=== PATIENT | female | born 1955 | race Caucasian/White ===

== ENCOUNTER 2017-06-28 17:33 | Emergency (ER) | payer OTHER ==
[~2017-06-28] VITALS: Ht 165.1 cm; Wt 83.9 kg
[~2017-06-28 17:33] MED LIST: ACET325 PO; ALBU90OI INH; ASPI81CH PO; BAYER CHEWABLE81 MG PO; BLOOD PRESSURE MED; Bactrim Ds Tab1 EACH PO; CEPH500 PO; CHOL10002; CHOLESTEROL MED; CYCL10 PO; Cleocin HCl150 MG PO; Cleocin HCl300 MG PO; FENO160 PO; Fish Oil Conc1 EACH PO; GABA300 PO; GLYB2.5 PO; HIBICLENS120 ML; HYDACE10B PO; HYDACE5 PO; HYDR1TAB94 PO; INSDET100 SC; LEVEMIR FL100 UNIT/1 SC; LEVFLO500 PO; LEVSOD50 PO; LINE600 PO; LISI5 PO; METF500 PO; MUPI1NAS; Norco 5-325 Ta1 EACH PO; Norco 7.5-3251 EACH PO; ONDA4 PO; Percocet 10-321 EACH PO; Percocet 5-3251 EACH PO; Prilosec Otc20 MG PO; SULTRIDS PO; Voltaren100 GM TOP
[2017-06-28 17:53] LABS: BASOPHILS ABSOLUTE AUTO 0.04 K/mm3 (0.00-0.23); BASOPHILS PERCENT AUTO 1 % (0-2); EOSINOPHILS ABSOLUTE AUTO 0.33 K/mm3 (0.00-0.68); EOSINOPHILS PERCENT AUTO 5 % (0-6); Hematocrit 44.8 % (33.0-51.0); Hemoglobin 15.2 g/dL (11.5-16.0); IMMATURE GRAN ABSOLUTE AUTO 0.02 K/mm3 (0.00-0.10); IMMATURE GRAN PERCENT AUTO 0 % (0-1); LYMPHOCYTES ABSOLUTE AUTO 2.59 K/mm3 (0.84-5.20); LYMPHOCYTES PERCENT AUTO 40 % (21-46); MONOCYTES ABSOLUTE AUTO 0.43 K/mm3 (0.16-1.47); MONOCYTES PERCENT AUTO 7 % (4-13); Mean Corpuscular HGB 29.5 pg (26.0-34.0); Mean Corpuscular HGB Conc 33.9 g/dL (31.5-36.5); Mean Corpuscular Volume 87 fL (80-100); Mean Platelet Volume 11.1 fL (9.1-12.4); NEUTROPHILS PERCENT AUTO 48 % (41-73); Platelet Count 264 K/mm3 (150-400); RDW Coefficient Variation 12.8 % (11.7-14.2); RDW Standard Deviation 39.9 fL (35.1-46.3); Red Blood Cell Count 5.15 M/mm3 (3.80-5.20); White Blood Cell Count 6.51 K/mm3 (4.00-11.30)
[2017-06-28 18:08] LABS: International Normalized Ratio 1.01; Prothrombin Time Results 10.5 Sec (9.7-11.5)
[2017-06-28 18:13] LABS: Alanine Aminotransfer (ALT/SGP 78 U/L (12-78); Albumin, Blood 4.4 g/dL (3.4-5.0); Albumin/Globulin Ratio 1.1 (0.8-1.8); Alk Phos 68 U/L (50-136); Anion Gap 12 mmol/L (6-16); Aspartate Aminotrans (AST/SGOT 87 U/L (12-37); Bilirubin, Total 0.4 mg/dL (0.1-1.0); Blood Urea Nitrogen 19 mg/dL (8-24); CO2, Blood 20 mmol/L (21-32); Calcium, Blood 9.6 mg/dL (8.5-10.1); Chloride, Blood 102 mmol/L (98-108); Creatinine, Blood 0.76 mg/dL (0.40-1.00); Glomerular Filtration Rate >60 (60-); Glucose, Blood 289 mg/dL (70-99); Potassium, Blood 4.3 mmol/L (3.5-5.5); Sodium, Blood 134 mmol/L (136-145); Total Protein, Blood 8.4 g/dL (6.4-8.2); Troponin I <0.015 ng/mL (0.000-0.040)
[2017-06-28 18:45] LABS: Magnesium, Blood 1.6 mg/dL (1.6-2.4)
[2017-06-28 19:12] LABS: Influenza A Negative (NEGATIVE); Influenza B Negative (NEGATIVE)
[2017-06-28] MEDS ORDERED: Zithromax250 MG PO (19:56)
[2017-06-28] MEDS ORDERED: Prednisone20 MG PO (19:56)
== END 2017-06-28 20:18 | disposition home or self-care (01) ==
LOC: ER 17:33
PROVIDERS: Emergency Medicine
DX: J44.1 Chronic obstructive pulmonary disease with (acute) exacerbation (principal); R00.0 Tachycardia, unspecified; Z88.5 Allergy status to narcotic agent; Z88.8 Allergy status to other drugs, medicaments and biological substances; Z79.899 Other long term (current) drug therapy; Z79.84 Long term (current) use of oral hypoglycemic drugs; Z79.82 Long term (current) use of aspirin; Z79.4 Long term (current) use of insulin; E03.9 Hypothyroidism, unspecified; E11.9 Type 2 diabetes mellitus without complications; F17.290 Nicotine dependence, other tobacco product, uncomplicated; Z87.01 Personal history of pneumonia (recurrent)
CPT/HCPCS: 36415; 71046; 80053; 83735; 83880; 84484; 85025; 85379; 85610; 85730; 87804; 93005; 93010; 94640; 96361; 96374; 99284; J2930; J7030

== ENCOUNTER → 2017-07-07 | Outpatient (CLI) | payer OTHER ==
[~2017-07-07] MED LIST changes: +BENADRYL25 MG PO; +EPIPEN 2-P0.3 MG/0.3 IM; +Prednisone20 MG PO; +Prednisone50 MG PO; +Zithromax250 MG PO
[2017-07-07 13:09] LABS: BASOPHILS ABSOLUTE AUTO 0.07 K/mm3 (0.00-0.23); BASOPHILS PERCENT AUTO 1 % (0-2); EOSINOPHILS PERCENT AUTO 6 % (0-6); Hematocrit 43.5 % (33.0-51.0); Hemoglobin 15.2 g/dL (11.5-16.0); IMMATURE GRAN ABSOLUTE AUTO 0.03 K/mm3 (0.00-0.10); IMMATURE GRAN PERCENT AUTO 0 % (0-1); LYMPHOCYTES ABSOLUTE AUTO 2.34 K/mm3 (0.84-5.20); LYMPHOCYTES PERCENT AUTO 32 % (21-46); MONOCYTES ABSOLUTE AUTO 0.51 K/mm3 (0.16-1.47); MONOCYTES PERCENT AUTO 7 % (4-13); Mean Corpuscular HGB 30.3 pg (26.0-34.0); Mean Corpuscular HGB Conc 34.9 g/dL (31.5-36.5); Mean Corpuscular Volume 87 fL (80-100); Mean Platelet Volume 11.3 fL (9.1-12.4); NEUTROPHILS ABSOLUTE AUTO 3.95 K/mm3 (1.96-9.15); NEUTROPHILS PERCENT AUTO 54 % (41-73); Platelet Count 284 K/mm3 (150-400); RDW Standard Deviation 40.3 fL (35.1-46.3); Red Blood Cell Count 5.02 M/mm3 (3.80-5.20)
[2017-07-07 13:22] LABS: Anion Gap 12 mmol/L (6-16); Blood Urea Nitrogen 22 mg/dL (8-24); Bun/Creatinine Ratio 20.4 (12.0-20.0); CO2, Blood 22 mmol/L (21-32); Calcium, Blood 9.5 mg/dL (8.5-10.1); Chloride, Blood 100 mmol/L (98-108); Creatinine, Blood 1.08 mg/dL (0.40-1.00); Glomerular Filtration Rate 51 (60-); Glucose, Blood 277 mg/dL (70-99); Potassium, Blood 4.4 mmol/L (3.5-5.5); Sodium, Blood 134 mmol/L (136-145)
[2017-07-07 13:25] LABS: Troponin I <0.017 ng/mL (0.000-0.040)
== END | disposition home or self-care (01) ==
LOC: LAB SHORT 13:04
PROVIDERS: Physician Assistant Surgical
DX: R42 Dizziness and giddiness (principal)
CPT/HCPCS: 80048; 84484; 85025; 85379

== ENCOUNTER 2017-11-15 16:20 | Emergency (ER) | payer OTHER ==
[~2017-11-15] VITALS: Ht 167.6 cm; Wt 86.2 kg
[~2017-11-15 16:20] MED LIST changes: -BENADRYL25 MG PO; -EPIPEN 2-P0.3 MG/0.3 IM; -Prednisone50 MG PO
[2017-11-15] MEDS ORDERED: Prednisone50 MG PO (17:32)
[2017-11-15] MEDS ORDERED: EPIPEN 2-P0.3 MG/0.3 IM (17:32)
[2017-11-15] MEDS ORDERED: BENADRYL25 MG PO (17:32)
[2017-11-15 18:00] LABS: Calcium, Ionized (POC) 1.12 mmol/L (1.10-1.46); Chloride (POC) 102 mmol/L (98-108); Creatinine (POC) 0.6 mg/dL (0.6-1.0); Glucose (ISTAT POC) 289 mg/dL (70-99); Hemoglobin (POC) 15.6 g/dL (12.0-16.0); Potassium (POC) 4.5 mmol/L (3.5-5.5); Sodium (POC) 138 mmol/L (135-148); Total CO2 (POC) 22 mmol/L (21-32)
== END 2017-11-15 18:35 | disposition home or self-care (01) ==
LOC: ER 16:20
PROVIDERS: Emergency Medicine
DX: T78.40XA Allergy, unspecified, initial encounter (principal); I47.1 Supraventricular tachycardia; Z88.5 Allergy status to narcotic agent; Z88.8 Allergy status to other drugs, medicaments and biological substances; Z79.899 Other long term (current) drug therapy; Z79.4 Long term (current) use of insulin; Z79.82 Long term (current) use of aspirin; Z79.84 Long term (current) use of oral hypoglycemic drugs; Z79.52 Long term (current) use of systemic steroids; J44.9 Chronic obstructive pulmonary disease, unspecified; E11.9 Type 2 diabetes mellitus without complications; E78.00 Pure hypercholesterolemia, unspecified; F17.290 Nicotine dependence, other tobacco product, uncomplicated
CPT/HCPCS: 71046; 80047; 85014; 93005; 93010; 96360; 99283; J7030

== ENCOUNTER → 2017-11-15 | Outpatient (CLI) | payer OTHER ==
[2017-11-15 15:35] LABS: BASOPHILS ABSOLUTE AUTO 0.08 K/mm3 (0.00-0.23); BASOPHILS PERCENT AUTO 0 % (0-2); EOSINOPHILS ABSOLUTE AUTO 0.15 K/mm3 (0.00-0.68); EOSINOPHILS PERCENT AUTO 1 % (0-6); Hemoglobin 16.8 g/dL (11.5-16.0); IMMATURE GRAN ABSOLUTE AUTO 0.07 K/mm3 (0.00-0.10); IMMATURE GRAN PERCENT AUTO 0 % (0-1); LYMPHOCYTES ABSOLUTE AUTO 3.97 K/mm3 (0.84-5.20); LYMPHOCYTES PERCENT AUTO 22 % (21-46); MONOCYTES ABSOLUTE AUTO 0.83 K/mm3 (0.16-1.47); MONOCYTES PERCENT AUTO 5 % (4-13); Mean Corpuscular Volume 86 fL (80-100); Mean Platelet Volume 11.6 fL (9.1-12.4); NEUTROPHILS ABSOLUTE AUTO 13.22 K/mm3 (1.96-9.15); NEUTROPHILS PERCENT AUTO 72 % (41-73); Platelet Count 381 K/mm3 (150-400); RDW Coefficient Variation 12.6 % (11.7-14.2); RDW Standard Deviation 38.9 fL (35.1-46.3); White Blood Cell Count 18.32 K/mm3 (4.00-11.30)
[2017-11-15 15:57] LABS: Alanine Aminotransfer (ALT/SGP 87 U/L (12-78); Albumin, Blood 4.2 g/dL (3.4-5.0); Albumin/Globulin Ratio 1.2 (0.8-1.8); Alk Phos 57 U/L (40-126); Anion Gap 17 mmol/L (6-16); Aspartate Aminotrans (AST/SGOT 88 U/L (12-37); Bilirubin, Total 0.4 mg/dL (0.1-1.0); Blood Urea Nitrogen 18 mg/dL (8-24); Bun/Creatinine Ratio 13.8 (12.0-20.0); CO2, Blood 20 mmol/L (21-32); Calcium, Blood 9.2 mg/dL (8.5-10.1); Chloride, Blood 99 mmol/L (98-108); Globulin, Blood 3.6 g/dL (2.2-4.0); Glomerular Filtration Rate 41 (60-); Glucose, Blood 317 mg/dL (70-99); Potassium, Blood 4.7 mmol/L (3.5-5.5); Sodium, Blood 136 mmol/L (136-145); Total Protein, Blood 7.8 g/dL (6.4-8.2); Troponin I <0.017 ng/mL (0.000-0.040)
== END | disposition home or self-care (01) ==
LOC: LAB SHORT 15:32 → LAB EV 15:32
PROVIDERS: Physician Assistant Medical
DX: R00.0 Tachycardia, unspecified (principal)
CPT/HCPCS: 80053; 84443; 84484; 85025

== ENCOUNTER → 2018-01-07 | Outpatient (CLI) | payer OTHER ==
[~2018-01-07] MED LIST changes: +BENADRYL25 MG PO; +EPIPEN 2-P0.3 MG/0.3 IM; +Prednisone50 MG PO
== END | disposition home or self-care (01) ==
LOC: LAB SHORT 12:49 → LAB 12:49
DX: N18.3 Chronic kidney disease, stage 3 (moderate) (principal); N39.0 Urinary tract infection, site not specified
CPT/HCPCS: 87086

== ENCOUNTER → 2018-09-11 | Outpatient (CLI) | payer OTHER | END | disposition home or self-care (01) | LOC: LAB 17:41 → LAB SHORT 17:41 | DX: Z22.322 Carrier or suspected carrier of Methicillin resistant Staphylococcus aureus (principal) | CPT/HCPCS: 87081 ==

== ENCOUNTER → 2021-07-09 | Outpatient (CLI) | payer OTHER ==
[2021-07-09 20:09] LABS: Adenovirus F 40/41 Not Detected (NOT DETECT); Astrovirus Not Detected (NOT DETECT); Campylobacter Sp Not Detected (NOT DETECT); Cryptosporidium Not Detected (NOT DETECT); Cyclospora Cayetanensis Not Detected (NOT DETECT); E. Coli O157 Not Detected (NOT DETECT); Entamoeba Histolytica Not Detected (NOT DETECT); Enteroaggregative E. coli-EAEC Not Detected (NOT DETECT); Enteropathogenic E. coli-EPEC Not Detected (NOT DETECT); Enterotoxigenic E. coli-ETEC Not Detected (NOT DETECT); Giardia Lamblia Not Detected (NOT DETECT); Norovirus GI/GII Not Detected (NOT DETECT); Plesiomonas Shigelloides Not Detected (NOT DETECT); Rotavirus A Not Detected (NOT DETECT); Salmonella Sp Not Detected (NOT DETECT); Sapovirus Not Detected (NOT DETECT); Shiga Toxin-prod E. coli-STEC Not Detected (NOT DETECT); Shigella/Enteroin E. coli-EIEC Not Detected (NOT DETECT); Vibrio Cholerae Not Detected (NOT DETECT); Vibrio Sp Not Detected (NOT DETECT); Yersinia Enterocolitica Not Detected (NOT DETECT)
== END ==
LOC: LAB SHORT 16:24
PROVIDERS: Family Medicine
DX: R19.7 Diarrhea, unspecified (principal)
CPT/HCPCS: 0097U

== ENCOUNTER 2021-10-18 11:27 | Day surgery (SDC) | payer OTHER ==
[~2021-10-18] VITALS: Ht 167.6 cm; Wt 82.9 kg
== END 2021-10-18 13:30 | disposition home or self-care (01) ==
LOC: ORSCSDS 11:27
PROVIDERS: Internal Medicine Gastroenterology
PROC: 0DBE8ZX Excision of Large Intestine, Via Natural or Artificial Opening Endoscopic, Diagnostic (ICD-10-PCS; principal; 2021-10-18 12:45)
DX: R19.4 Change in bowel habit (principal); K21.9 Gastro-esophageal reflux disease without esophagitis; K22.2 Esophageal obstruction; K57.30 Diverticulosis of large intestine without perforation or abscess without bleeding; E11.9 Type 2 diabetes mellitus without complications; Z87.891 Personal history of nicotine dependence; E66.9 Obesity, unspecified; Z68.30 Body mass index [BMI] 30.0-30.9, adult; Z79.84 Long term (current) use of oral hypoglycemic drugs; Z79.899 Other long term (current) drug therapy
CPT/HCPCS: 82947; 88305; J2704; J7120

== ENCOUNTER → 2023-03-06 | Outpatient (CLI) | payer OTHER ==
[2023-03-06 16:50] LABS: BASOPHILS ABSOLUTE AUTO 0.06 K/mm3 (0.00-0.23); BASOPHILS PERCENT AUTO 1 % (0-2); EOSINOPHILS ABSOLUTE AUTO 0.16 K/mm3 (0.00-0.68); EOSINOPHILS PERCENT AUTO 1 % (0-6); Hematocrit 35.4 % (33.0-51.0); Hemoglobin 11.9 g/dL (11.5-16.0); IMMATURE GRAN ABSOLUTE AUTO 0.07 K/mm3 (0.00-0.10); IMMATURE GRAN PERCENT AUTO 1 % (0-1); LYMPHOCYTES ABSOLUTE AUTO 2.05 K/mm3 (0.84-5.20); LYMPHOCYTES PERCENT AUTO 16 % (21-46); MONOCYTES ABSOLUTE AUTO 0.87 K/mm3 (0.16-1.47); MONOCYTES PERCENT AUTO 7 % (4-13); Mean Corpuscular HGB 27.7 pg (26.0-34.0); Mean Corpuscular HGB Conc 33.6 g/dL (31.5-36.5); Mean Corpuscular Volume 83 fL (80-100); Mean Platelet Volume 10.4 fL (9.1-12.4); NEUTROPHILS ABSOLUTE AUTO 9.93 K/mm3 (1.96-9.15); NEUTROPHILS PERCENT AUTO 76 % (41-73); Platelet Count 464 K/mm3 (150-400); RDW Coefficient Variation 12.9 % (11.7-14.2); RDW Standard Deviation 38.5 fL (35.1-46.3); Red Blood Cell Count 4.29 M/mm3 (3.80-5.20); White Blood Cell Count 13.14 K/mm3 (4.00-11.30)
[2023-03-06 16:54] LABS: Bun/Creatinine Ratio 11.8 (12.0-20.0); Calcium, Blood 9.7 mg/dL (8.5-10.1); Creatinine, Blood 1.02 mg/dL (0.40-1.00); Potassium, Blood 4.3 mmol/L (3.5-5.5)
== END | disposition home or self-care (01) ==
LOC: LAB 16:44 → LAB SHORT 16:44
PROVIDERS: Family Medicine
DX: L97.509 Non-pressure chronic ulcer of other part of unspecified foot with unspecified severity (principal)
CPT/HCPCS: 80048; 85025

== ENCOUNTER 2023-03-10 10:18 | Inpatient (IN) | payer OTHER ==
[~2023-03-10] VITALS: Ht 167.6 cm; Wt 83.5 kg
[2023-03-10 11:07] LABS: BASOPHILS ABSOLUTE AUTO 0.05 K/mm3 (0.00-0.23); BASOPHILS PERCENT AUTO 1 % (0-2); EOSINOPHILS ABSOLUTE AUTO 0.31 K/mm3 (0.00-0.68); EOSINOPHILS PERCENT AUTO 4 % (0-6); Hematocrit 33.8 % (33.0-51.0); Hemoglobin 11.1 g/dL (11.5-16.0); IMMATURE GRAN ABSOLUTE AUTO 0.03 K/mm3 (0.00-0.10); IMMATURE GRAN PERCENT AUTO 0 % (0-1); LYMPHOCYTES ABSOLUTE AUTO 1.86 K/mm3 (0.84-5.20); LYMPHOCYTES PERCENT AUTO 22 % (21-46); MONOCYTES ABSOLUTE AUTO 0.81 K/mm3 (0.16-1.47); MONOCYTES PERCENT AUTO 10 % (4-13); Mean Corpuscular HGB 27.4 pg (26.0-34.0); Mean Corpuscular HGB Conc 32.8 g/dL (31.5-36.5); Mean Corpuscular Volume 84 fL (80-100); Mean Platelet Volume 10.3 fL (9.1-12.4); NEUTROPHILS ABSOLUTE AUTO 5.28 K/mm3 (1.96-9.15); NEUTROPHILS PERCENT AUTO 63 % (41-73); Platelet Count 569 K/mm3 (150-400); RDW Standard Deviation 39.7 fL (35.1-46.3); Red Blood Cell Count 4.05 M/mm3 (3.80-5.20); White Blood Cell Count 8.34 K/mm3 (4.00-11.30)
[2023-03-10 11:12] LABS: Albumin, Blood 2.8 g/dL (3.4-5.0); Albumin/Globulin Ratio 0.5 (0.8-1.8); Bilirubin, Total 0.2 mg/dL (0.1-1.0); Calcium, Blood 9.5 mg/dL (8.5-10.1); Creatinine, Blood 0.86 mg/dL (0.40-1.00); Globulin, Blood 5.2 g/dL (2.2-4.0); Potassium, Blood 4.4 mmol/L (3.5-5.5)
[2023-03-10 14:39] VITALS: BP 137/93
--- NOTE | 2023-03-10 15:12 | NUR ---
PATIENT ARRIVED FROM ER TODAY AT 1440. PATIENT IS A&OX4. VS ARE WNL AND IS ON RA. PATIENT DENIES PAIN AT THIS TIME. HER LEFT TOE HAS GAUZE AND KERLEX THAT IS INTACT. PATIENT REPORTS HAVING NO NUMBNESS OR TINGLING IN ALL EXTREMITIES. SHE IS UNABLE TO MOVE HER LEFT BIG TOE THAT MUCH BUT SHE IS ABLE TO MOVE ALL OTHER FINGERS AND TOES WHEN ASKED. SHE IS TOLERATING PO INTAKE AND IS VOIDING/HAVING BMS. SHE IS CURRENTLY LAYING IN BED WITH CALL LIGHT IN REACH. THE PLAN IS FOR HER TO BE NPO AT MIDNIGHT TONIGHT AND WILL HAVE SURGERY WITH DR. WATT IN THE MORNING TO AMPUTATE THE LEFT BIG TOE.
[2023-03-10 21:17] VITALS: BP 114/53
[2023-03-11] VITALS (13 sets, daily range): BP systolic 111–147; BP diastolic 57–78
--- NOTE | 2023-03-11 04:46 | NUR ---
SHIFT SUMMARY NO ACUTE CHANGES TO REPORT OVERNIGHT, PT HAS RESTED T/O THE SHIFT. MEDICATED X1 FOR PAIN. DRESSING TO R GREAT TOE CHANGED X1 THIS SHIFT, LOTS OF SEROSANGUINEOUS EXUDATE WHICH SATURATED EXUDRY. PT REPORTS NEUROPATHY AT BASELINE IN FEET, BUT REPORTS INCREASED N/T WITH INFECTION OF TOE. PT HAS SENSATION WHEN FOOT IS TOUCHED. PT HAS BEEN NPO SINCE MIDNIGHT FOR PROCEDURE, IV ANTIBITOICS INFUSED. BED IN LOWEST POSITION, CALL LIGHT WITHIN REACH.
[2023-03-11 05:18] LABS: Hematocrit 31.4 % (33.0-51.0); Mean Corpuscular HGB 27.1 pg (26.0-34.0); Mean Corpuscular HGB Conc 31.8 g/dL (31.5-36.5); Mean Corpuscular Volume 85 fL (80-100); Mean Platelet Volume 10.1 fL (9.1-12.4); Platelet Count 500 K/mm3 (150-400); RDW Coefficient Variation 13.2 % (11.7-14.2); RDW Standard Deviation 41.1 fL (35.1-46.3); Red Blood Cell Count 3.69 M/mm3 (3.80-5.20); White Blood Cell Count 6.85 K/mm3 (4.00-11.30)
[2023-03-11 05:54] LABS: Bun/Creatinine Ratio 12.9 (12.0-20.0); Calcium, Blood 9.8 mg/dL (8.5-10.1); Creatinine, Blood 0.78 mg/dL (0.40-1.00); Magnesium, Blood 1.4 mg/dL (1.6-2.4); Potassium, Blood 4.1 mmol/L (3.5-5.5); Thyroid Stimulating Hormone 0.976 uIU/mL (0.360-4.800)
--- NOTE | 2023-03-11 12:29 | NUR ---
PT WENT TO PREOP/O.R.
--- NOTE | 2023-03-11 14:00 | NUR ---
PT BACK FROM O.R., A&OX4, DENIES PAIN, DENIES N&V/HALEIGH H20, AT BEDSIDE.
--- NOTE | 2023-03-11 16:44 | NUR ---
SHIFT SUMMARY PT A&OX4, VSS/RA, HALEIGH PO, VOIDING, AMB SBA W/POSTOP SHOE ON, REPOSITIONS SELF WELL, DENIES PAIN/NEED FOR PAIN MED AT THIS TIME, IV LAC SL/ABX PER EMAR. S/P L GREAT TOE AMPUTATION, DRESSING CDI, ELEVATED. WILL REPORT TO ONCOMING NOC RN.
[2023-03-11] MEDS ORDERED: Amaryl1 MG PO (18:17)
[2023-03-11] MEDS ORDERED: PREGABALIN25 MG PO (18:21)
[2023-03-11] MEDS ORDERED: BASAGLAR K100 UNIT/1 SC (18:22)
[2023-03-11] MEDS ORDERED: Cymbalta20 MG PO (18:22)
[2023-03-11] MEDS ORDERED: OMEP20ER PO (18:24)
[2023-03-11] MEDS ORDERED: NEBI10 PO (18:24)
[2023-03-11] MEDS ORDERED: PRAVASTATIN SOD10 MG PO (18:25)
--- NOTE | 2023-03-11 21:24 | NUR ---
BG 359 ESEQUIEL MENEZES NP NOTIFIED. NOTIFIED HIM THAT PT RECEIVED 50 UNITS OF LANTUS HS. NO ADDITIONAL ORDERS GIVEN AT THIS TIME.
[2023-03-12 00:12] VITALS: BP 122/73
[2023-03-12 01:04] LABS: Hematocrit 32.4 % (33.0-51.0); Hemoglobin 10.6 g/dL (11.5-16.0); Mean Corpuscular HGB 27.5 pg (26.0-34.0); Mean Corpuscular HGB Conc 32.7 g/dL (31.5-36.5); Mean Corpuscular Volume 84 fL (80-100); Mean Platelet Volume 9.9 fL (9.1-12.4); Platelet Count 530 K/mm3 (150-400); RDW Coefficient Variation 13.2 % (11.7-14.2); RDW Standard Deviation 39.8 fL (35.1-46.3); Red Blood Cell Count 3.85 M/mm3 (3.80-5.20)
[2023-03-12 01:23] LABS: Vancomycin, Trough 14.4 ug/mL (5.0-10.0)
[2023-03-12 01:25] LABS: Albumin, Blood 2.8 g/dL (3.4-5.0); Anion Gap 9 mmol/L (6-16); Blood Urea Nitrogen 18 mg/dL (8-24); Bun/Creatinine Ratio 21.5 (12.0-20.0); CO2, Blood 24 mmol/L (21-32); Calcium, Blood 9.6 mg/dL (8.5-10.1); Chloride, Blood 104 mmol/L (98-108); Creatinine, Blood 0.84 mg/dL (0.40-1.00); Glomerular Filtration Rate 75 (60-); Glucose, Blood 330 mg/dL (70-99); Magnesium, Blood 1.6 mg/dL (1.6-2.4); Phosphorus, Blood 3.5 mg/dL (2.5-4.9); Potassium, Blood 4.4 mmol/L (3.5-5.5); Sodium, Blood 137 mmol/L (136-145)
[2023-03-12 03:40] VITALS: BP 142/60
--- NOTE | 2023-03-12 03:54 | NUR ---
SHIFT SUMMARY NO ACUTE CHANGES TO REPORT OVERNIGHT, PT POST OP DAY 0 R GREAT TOE AMPUATION, PT HAS DENIED PAIN MOST OF THE NIGHT, AND JUST STARTED TO REPORT PAIN THIS AM. WILL MEDICATE PER MICHAEL NICOLE. DRESSING IS INTACT TO FOOT. PT WEARIMG SPECIAL SHOE TO AMBULATE. VITALS ARE STABLE. IV ANTIBITOICS CONTINUED. BED IN LOWEST POSITION, CALL LIGHT WITHIN REACH.
[2023-03-12 07:15] VITALS: BP 124/69
[2023-03-12] MEDS ORDERED: AMOX875 PO (12:31)
[2023-03-12] MEDS ORDERED: SENN187 PO (12:32)
[2023-03-12] MEDS ORDERED: HYDR1TAB94 PO (12:35)
--- NOTE | 2023-03-12 13:26 | NUR ---
DISCHARGE SUMMARY PT A&OX4, VSS/RA, HALEIGH PO, VOIDING, AMB W/POSTOP SHOE, PAIN MANAGED, IV DC'D. DC INS PROVIDED. PT REP UNDERSTANDING THOSE INSTRUCTIONS INCLUDING KEEPING DRESSING CDI, ELEVATE AT REST, WEAR POSTOP SHOE WITH AMB, FU WITH SURGEON THIS WEEK/CALL ON MONDAY TO SCHEDULE. LEFT FLOOR VIA WC WITH FIRM ADMINISTRATOR, TO GO HOME WITH , WITH ALL PERSONAL POSSESSIONS INCLUDING DC PACKET AND 1 NARC SCRIPT; SCRIPTS FAXED TO [facility].
--- NOTE | 2023-03-14 15:39 | NUR ---
03/14/23 1539 Erna Hunter VERIFICATIONS: EDIT CHART.
== END 2023-03-12 13:15 | disposition home or self-care (01) | DRG 617 ==
LOC: ER 10:18 → SURS 12:39
PROVIDERS: Internal Medicine; Physician Assistant; Podiatrist; ADMIT Internal Medicine
PROC: 0Y6Q0Z0 Detachment at Left 1st Toe, Complete, Open Approach (ICD-10-PCS; principal; 2023-03-11 10:30)
DX: E11.69 Type 2 diabetes mellitus with other specified complication (principal); M86.172 Other acute osteomyelitis, left ankle and foot; E11.628 Type 2 diabetes mellitus with other skin complications; L03.032 Cellulitis of left toe; E11.621 Type 2 diabetes mellitus with foot ulcer; F17.290 Nicotine dependence, other tobacco product, uncomplicated; K21.9 Gastro-esophageal reflux disease without esophagitis; J44.9 Chronic obstructive pulmonary disease, unspecified; L97.524 Non-pressure chronic ulcer of other part of left foot with necrosis of bone; E03.9 Hypothyroidism, unspecified; E11.40 Type 2 diabetes mellitus with diabetic neuropathy, unspecified; Z90.710 Acquired absence of both cervix and uterus; Z79.4 Long term (current) use of insulin; Z79.891 Long term (current) use of opiate analgesic; Z79.890 Hormone replacement therapy; Z79.2 Long term (current) use of antibiotics; Z79.899 Other long term (current) drug therapy; Z88.5 Allergy status to narcotic agent; Z88.8 Allergy status to other drugs, medicaments and biological substances; Z86.19 Personal history of other infectious and parasitic diseases; Z79.82 Long term (current) use of aspirin
CPT/HCPCS: 36415; 80048; 80053; 80069; 80202; 82947; 83605; 83735; 84443; 85025; 85027; 96365; 96375; 99284-25; A9270; J0692; J1100; J1815; J1885; J2405; J2704; J3010; J3370; J3475; J7030; J7120

== ENCOUNTER → 2024-02-23 | Outpatient (CLI) | payer OTHER ==
[~2024-02-23] MED LIST changes: +AMOX875 PO; +Amaryl1 MG PO; +BASAGLAR K100 UNIT/1 SC; +Cymbalta20 MG PO; +NEBI10 PO; +OMEP20ER PO; +PRAVASTATIN SOD10 MG PO; +PREGABALIN25 MG PO; +SENN187 PO
== END ==
LOC: LAB 17:05 → LAB SHORT 17:05
DX: R30.0 Dysuria (principal)
CPT/HCPCS: 87077; 87086; 87147; 87186

== ENCOUNTER → 2024-02-26 | Outpatient (CLI) | payer OTHER ==
[2024-02-27 16:40] LABS: Adenovirus F 40/41 Not Detected (NOT DETECT); Astrovirus Not Detected (NOT DETECT); Campylobacter Sp Not Detected (NOT DETECT); Cryptosporidium Not Detected (NOT DETECT); Cyclospora Cayetanensis Not Detected (NOT DETECT); E. Coli O157 Not Detected (NOT DETECT); Entamoeba Histolytica Not Detected (NOT DETECT); Enteroaggregative E. coli-EAEC Not Detected (NOT DETECT); Enteropathogenic E. coli-EPEC Not Detected (NOT DETECT); Enterotoxigenic E. coli-ETEC Not Detected (NOT DETECT); Giardia Lamblia Not Detected (NOT DETECT); Norovirus GI/GII Not Detected (NOT DETECT); Plesiomonas Shigelloides Not Detected (NOT DETECT); Rotavirus A Not Detected (NOT DETECT); Salmonella Sp Not Detected (NOT DETECT); Sapovirus Not Detected (NOT DETECT); Shiga Toxin-prod E. coli-STEC Not Detected (NOT DETECT); Shigella/Enteroin E. coli-EIEC Not Detected (NOT DETECT); Vibrio Cholerae Not Detected (NOT DETECT); Vibrio Sp Not Detected (NOT DETECT); Yersinia Enterocolitica Not Detected (NOT DETECT)
[2024-02-28 11:47] LABS: Stool Occult Bld Immuno 1 Positive (NEGATIVE)
[2024-02-29 13:28] LABS: CALPROTECTIN,FECAL 118 ug/g (<=49)
== END | disposition home or self-care (01) ==
LOC: LAB SHORT 14:30 → LAB 14:30
PROVIDERS: Nurse Practitioner Family
DX: K92.1 Melena (principal); R19.4 Change in bowel habit
CPT/HCPCS: 82274; 83993; 87507

== ENCOUNTER → 2024-03-07 | Outpatient (CLI) | payer OTHER | LOC: LAB SHORT 19:06 → LAB 19:06 | DX: R10.84 Generalized abdominal pain (principal) | CPT/HCPCS: 87086 ==

== ENCOUNTER → 2024-04-03 | Outpatient (CLI) | payer OTHER | LOC: LAB SHORT 16:25 → LAB 16:25 | DX: N39.0 Urinary tract infection, site not specified (principal) | CPT/HCPCS: 87086 ==

== ENCOUNTER → 2024-05-01 | Outpatient (CLI) | payer OTHER ==
[~2024-05-01] MED LIST changes: +CLON.5 PO
[2024-05-01 11:02] LABS: Source, Urine Clean Catch
[2024-05-01 11:03] LABS: Source, Urine Clean Catch
[2024-05-01 13:24] LABS: Appearance, Urine Clear (Clear); Bilirubin, Urine Neg (Neg); Blood, Urine Neg (Neg); Color, Urine Yellow (P-Yellow); Glucose Qualitative, Urine Neg (Neg); Ketones, Urine Neg (Neg); Leukocyte Esterase, Urine 3+ (Neg); Nitrite, Urine Neg (Neg); Protein, Urine 1+ (Neg); Urobilinogen, Urine NORM (Normal)
[2024-05-01 13:55] LABS: Bacteria Many /hpf; Hyaline Casts 0-2 /lpf (0-2); Squamous Epithelial Cells Many /hpf (Few); Transitional Epithelial Cells Few /hpf (0-Rare); White Blood Cells, Urine 25-50 /hpf (0-5)
[2024-05-01 14:03] LABS: Albumin, Blood 3.8 g/dL (3.4-5.0); Anion Gap 13 mmol/L (3-11); Blood Urea Nitrogen 17 mg/dL (8-24); Bun/Creatinine Ratio 24.9 (12.0-20.0); CO2, Blood 23 mmol/L (21-32); Calcium, Blood 9.5 mg/dL (8.5-10.1); Chloride, Blood 109 mmol/L (98-108); Creatinine, Blood 0.68 mg/dL (0.40-1.00); Glomerular Filtration Rate 94 (60-); Glucose, Blood 164 mg/dL (70-99); Potassium, Blood 4.1 mmol/L (3.5-5.5); Sodium, Blood 141 mmol/L (136-145)
== END | disposition home or self-care (01) ==
LOC: LAB 10:55 → LAB SHORT 10:55 → LAB FUT 02-19 16:20
PROVIDERS: Internal Medicine Nephrology; Nurse Practitioner Family
DX: I63.9 Cerebral infarction, unspecified (principal); N18.30 Chronic kidney disease, stage 3 unspecified; D63.1 Anemia in chronic kidney disease; K92.1 Melena; G89.4 Chronic pain syndrome; N25.81 Secondary hyperparathyroidism of renal origin; D55.9 Anemia due to enzyme disorder, unspecified; R19.4 Change in bowel habit; R76.9 Abnormal immunological finding in serum, unspecified; R94.5 Abnormal results of liver function studies; R94.6 Abnormal results of thyroid function studies; R30.0 Dysuria
CPT/HCPCS: 36415; 80069; 81015; 85018; 85651; 86140; 87086

== ENCOUNTER 2024-05-20 14:19 | Emergency (ER) | payer OTHER ==
[~2024-05-20] VITALS: Ht 167.6 cm; Wt 79.4 kg
[~2024-05-20 14:19] MED LIST changes: -MECL25 PO
[2024-05-20 15:19] LABS: Base Excess Venous -1.4 mmol/L; Bicarbonate Venous 23.5 mmol/L (24.0-30.0); PCO2 Venous 36.6 mmHg (38-42); pH Blood Venous 7.41 (7.34-7.37)
[2024-05-20 15:21] LABS: BASOPHILS ABSOLUTE AUTO 0.07 K/mm3 (0.00-0.23); BASOPHILS PERCENT AUTO 1 % (0-2); EOSINOPHILS ABSOLUTE AUTO 0.45 K/mm3 (0.00-0.68); EOSINOPHILS PERCENT AUTO 4 % (0-6); Hematocrit 38.6 % (33.0-51.0); Hemoglobin 13.7 g/dL (11.5-16.0); IMMATURE GRAN ABSOLUTE AUTO 0.03 K/mm3 (0.00-0.10); IMMATURE GRAN PERCENT AUTO 0 % (0-1); LYMPHOCYTES ABSOLUTE AUTO 2.37 K/mm3 (0.84-5.20); LYMPHOCYTES PERCENT AUTO 22 % (21-46); MONOCYTES ABSOLUTE AUTO 0.48 K/mm3 (0.16-1.47); MONOCYTES PERCENT AUTO 5 % (4-13); Mean Corpuscular HGB 30.5 pg (26.0-34.0); Mean Corpuscular HGB Conc 35.5 g/dL (31.5-36.5); Mean Corpuscular Volume 86 fL (80-100); Mean Platelet Volume 10.7 fL (9.1-12.4); NEUTROPHILS ABSOLUTE AUTO 7.37 K/mm3 (1.96-9.15); NEUTROPHILS PERCENT AUTO 68 % (41-73); Platelet Count 295 K/mm3 (150-400); RDW Coefficient Variation 12.6 % (11.7-14.2); RDW Standard Deviation 39.5 fL (35.1-46.3); Red Blood Cell Count 4.49 M/mm3 (3.80-5.20); White Blood Cell Count 10.77 K/mm3 (4.00-11.30)
[2024-05-20 15:41] LABS: Albumin, Blood 3.9 g/dL (3.4-5.0); Albumin/Globulin Ratio 0.9 (0.8-1.8); Bilirubin, Total 0.4 mg/dL (0.1-1.0); Bun/Creatinine Ratio 21.3 (12.0-20.0); Calcium, Blood 10.3 mg/dL (8.5-10.1); Creatinine, Blood 0.75 mg/dL (0.40-1.00); Globulin, Blood 4.5 g/dL (2.2-4.0); Potassium, Blood 4.1 mmol/L (3.5-5.5); Total Protein, Blood 8.4 g/dL (6.4-8.2)
[2024-05-20 16:19] LABS: Source, Urine Clean Catch
[2024-05-20 16:27] LABS: Appearance, Urine Clear (Clear); Bilirubin, Urine Neg (Neg); Blood, Urine Neg (Neg); Color, Urine Yellow (P-Yellow); Glucose Qualitative, Urine 4+ (Neg); Ketones, Urine Neg (Neg); Leukocyte Esterase, Urine 2+ (Neg); Nitrite, Urine Neg (Neg); Protein, Urine 1+ (Neg); Specific Gravity, Urine 1.015 (1.003-1.022); Urobilinogen, Urine NORM (Normal)
[2024-05-20 16:42] LABS: Bacteria Many /hpf; Red Blood Cells, Urine 0-2 /hpf (0-2); Squamous Epithelial Cells Mod /hpf (Few)
[2024-05-20 16:43] LABS: Yeast/Fungi Urine Rare /hpf
[2024-05-20] MEDS ORDERED: Meclizine HCl 25 MG Tab PO ONE (17:35)
[2024-05-20] MEDS ORDERED: NS 1,000 ML IV SCH (17:35)
[2024-05-20] MEDS ORDERED: Insulin Regular 100 Unit/ML 1ML Dose IV ONE (17:35)
[2024-05-20 19:31] VITALS: BP 163/96
[2024-05-20] MEDS ORDERED: MECL25 PO (19:42)
[2024-05-20] MEDS ORDERED: CEPH500 PO (19:52)
[2024-05-20] MEDS ORDERED: Cephalexin Monohydrate 500 MG Cap PO ONE (19:55)
== END 2024-05-20 19:56 | disposition home or self-care (01) ==
LOC: ER 14:19
PROVIDERS: Physician Assistant
DX: E11.65 Type 2 diabetes mellitus with hyperglycemia (principal); E03.9 Hypothyroidism, unspecified; J44.9 Chronic obstructive pulmonary disease, unspecified; E78.00 Pure hypercholesterolemia, unspecified; F17.290 Nicotine dependence, other tobacco product, uncomplicated; Z79.899 Other long term (current) drug therapy; Z79.82 Long term (current) use of aspirin; Z79.84 Long term (current) use of oral hypoglycemic drugs; Z88.5 Allergy status to narcotic agent; Z88.1 Allergy status to other antibiotic agents; Z88.8 Allergy status to other drugs, medicaments and biological substances; Z91.048 Other nonmedicinal substance allergy status
CPT/HCPCS: 80053; 81001; 82803; 82947; 85025; 87086; 96360; 99284-25; A9270; J1815; J7030

== ENCOUNTER → 2024-05-20 | Outpatient (CLI) | payer OTHER ==
[~2024-05-20] MED LIST changes: +MECL25 PO
== END | disposition home or self-care (01) ==
LOC: LAB 16:50 → LAB SHORT 16:50
DX: N39.0 Urinary tract infection, site not specified (principal)
CPT/HCPCS: 87086

== ENCOUNTER 2024-06-15 22:53 | Inpatient (IN) | payer OTHER ==
[~2024-06-15] VITALS: Ht 162.6 cm; Wt 83.0 kg
[~2024-06-15 22:53] MED LIST changes: -Amaryl1 MG PO; +GLIM2 PO; +GLUCOPHAGE1000 M1 PO; +LEVSOD150 PO; -LEVSOD50 PO; +MECL25 PO; -METF500 PO
[2024-06-15] MEDS ORDERED: Lactated Ringer's 1,000 ML IV ONE (23:25)
[2024-06-15 23:44] LABS: BASOPHILS ABSOLUTE AUTO 0.03 K/mm3 (0.00-0.23); BASOPHILS PERCENT AUTO 0 % (0-2); EOSINOPHILS ABSOLUTE AUTO 0.03 K/mm3 (0.00-0.68); EOSINOPHILS PERCENT AUTO 0 % (0-6); Hematocrit 35.6 % (33.0-51.0); Hemoglobin 12.7 g/dL (11.5-16.0); IMMATURE GRAN ABSOLUTE AUTO 0.02 K/mm3 (0.00-0.10); IMMATURE GRAN PERCENT AUTO 0 % (0-1); LYMPHOCYTES ABSOLUTE AUTO 0.57 K/mm3 (0.84-5.20); LYMPHOCYTES PERCENT AUTO 6 % (21-46); MONOCYTES ABSOLUTE AUTO 0.71 K/mm3 (0.16-1.47); MONOCYTES PERCENT AUTO 8 % (4-13); Mean Corpuscular HGB 30.2 pg (26.0-34.0); Mean Corpuscular HGB Conc 35.7 g/dL (31.5-36.5); Mean Corpuscular Volume 85 fL (80-100); Mean Platelet Volume 10.8 fL (9.1-12.4); NEUTROPHILS ABSOLUTE AUTO 7.66 K/mm3 (1.96-9.15); NEUTROPHILS PERCENT AUTO 85 % (41-73); Platelet Count 178 K/mm3 (150-400); RDW Coefficient Variation 12.9 % (11.7-14.2); White Blood Cell Count 9.02 K/mm3 (4.00-11.30)
[2024-06-15 23:44] LABS: Source, Urine Clean Catch
[2024-06-15 23:46] LABS: Bilirubin, Urine Neg (Neg); Blood, Urine 3+ (Neg); Glucose Qualitative, Urine 4+ (Neg); Ketones, Urine Neg (Neg); Leukocyte Esterase, Urine 3+ (Neg); Nitrite, Urine Neg (Neg); Protein, Urine 2+ (Neg); Urobilinogen, Urine NORM (Normal)
[2024-06-15 23:51] LABS: Appearance, Urine Hazy (Clear); Color, Urine Yellow (P-Yellow)
[2024-06-15 23:56] LABS: Bacteria Many /hpf; Red Blood Cells, Urine 0-2 /hpf (0-2); Squamous Epithelial Cells Few /hpf (Few); White Blood Cells, Urine TNTC /hpf (0-5)
[2024-06-16 00:04] LABS: Magnesium, Blood 0.9 mg/dL (1.6-2.4)
[2024-06-16 00:05] LABS: Albumin, Blood 3.7 g/dL (3.4-5.0); Albumin/Globulin Ratio 0.9 (0.8-1.8); Bilirubin, Total 0.6 mg/dL (0.1-1.0); Bun/Creatinine Ratio 24.3 (12.0-20.0); Calcium, Blood 8.6 mg/dL (8.5-10.1); Creatinine, Blood 0.54 mg/dL (0.40-1.00); Globulin, Blood 3.9 g/dL (2.2-4.0); Potassium, Blood 3.6 mmol/L (3.5-5.5); Total Protein, Blood 7.6 g/dL (6.4-8.2)
[2024-06-16] MEDS ORDERED: Magnesium Sulf 2 GM/Water 50ML 50 ML IV ONE (00:10)
[2024-06-16] MEDS ORDERED: Ipratropium/Albuterol SulF 2.5-0.5MG/3 ML Amp INH ONE (00:20)
[2024-06-16] MEDS ORDERED: CefTRIAXone Sodium 1,000 MG in NS 100 ML IV ONE (00:20)
[2024-06-16] MEDS ORDERED: Ondansetron HCl 2 MG / ML 2ML Vial IV ONE (00:35)
[2024-06-16] MEDS ORDERED: FLU VACC TS2024-25(6MOS UP)/PF 45 MCG/0.5 ML SYRINGE IM SCH (01:15)
[2024-06-16] MEDS ORDERED: Ondansetron HCl 2 MG / ML 2ML Vial IV PRN (01:20)
[2024-06-16] MEDS ORDERED: Acetaminophen 325 MG TABLET PO PRN (01:20)
[2024-06-16] MEDS ORDERED: Lactated Ringer's 1,000 ML IV SCH (02:00)
[2024-06-16 02:28] LABS: CORONAVIRUS COVID-19 AG Negative (NEGATIVE); INFLUENZA A AG Negative (NEGATIVE); INFLUENZA B AG Negative (NEGATIVE)
[2024-06-16 04:46] LABS: Albumin/Globulin Ratio Unable to Calculate (0.8-1.8); Anion Gap Unable to Calculate mmol/L (3-11); Bun/Creatinine Ratio Unable to Calculate (12.0-20.0); Globulin, Blood Unable to Calculate g/dL (2.2-4.0)
[2024-06-16 05:41] LABS: Albumin, Blood 3.4 g/dL (3.4-5.0); Albumin/Globulin Ratio 0.9 (0.8-1.8); Bilirubin, Total 0.4 mg/dL (0.1-1.0); Bun/Creatinine Ratio 21.5 (12.0-20.0); Calcium, Blood 8.9 mg/dL (8.5-10.1); Creatinine, Blood 0.61 mg/dL (0.40-1.00); Globulin, Blood 3.6 g/dL (2.2-4.0); Magnesium, Blood 1.8 mg/dL (1.6-2.4); Potassium, Blood 4.4 mmol/L (3.5-5.5)
[2024-06-16 05:41] LABS: BASOPHILS ABSOLUTE AUTO 0.04 K/mm3 (0.00-0.23); BASOPHILS PERCENT AUTO 0 % (0-2); EOSINOPHILS ABSOLUTE AUTO 0.01 K/mm3 (0.00-0.68); EOSINOPHILS PERCENT AUTO 0 % (0-6); Hematocrit 33.8 % (33.0-51.0); Hemoglobin 11.5 g/dL (11.5-16.0); IMMATURE GRAN ABSOLUTE AUTO 0.03 K/mm3 (0.00-0.10); IMMATURE GRAN PERCENT AUTO 0 % (0-1); LYMPHOCYTES ABSOLUTE AUTO 0.93 K/mm3 (0.84-5.20); LYMPHOCYTES PERCENT AUTO 10 % (21-46); MONOCYTES ABSOLUTE AUTO 0.73 K/mm3 (0.16-1.47); MONOCYTES PERCENT AUTO 8 % (4-13); Mean Corpuscular HGB 29.9 pg (26.0-34.0); Mean Corpuscular Volume 88 fL (80-100); Mean Platelet Volume 10.8 fL (9.1-12.4); NEUTROPHILS ABSOLUTE AUTO 7.39 K/mm3 (1.96-9.15); NEUTROPHILS PERCENT AUTO 81 % (41-73); Platelet Count 164 K/mm3 (150-400); RDW Coefficient Variation 13.2 % (11.7-14.2); RDW Standard Deviation 41.8 fL (35.1-46.3); Red Blood Cell Count 3.85 M/mm3 (3.80-5.20); White Blood Cell Count 9.13 K/mm3 (4.00-11.30)
[2024-06-16] MEDS ORDERED: INSULANPEN SC (07:52)
[2024-06-16] MEDS ORDERED: Crestor40 MG PO (07:53)
[2024-06-16] MEDS ORDERED: HYDR1TAB94 PO (07:53)
[2024-06-16] MEDS ORDERED: CATAPRES0.1 MG PO (07:54)
[2024-06-16] MEDS ORDERED: Insulin Human Lispro 100 Units/ML 3ML Syringe SC ONE (08:30)
[2024-06-16] MEDS ORDERED: Enoxaparin 40 MG/0.4 ML SYR SC SCH (09:00)
[2024-06-16] MEDS ORDERED: Lactobacil 2-S.Thermo-Bifido 1 1 Cap PO SCH (09:00)
[2024-06-16] MEDS ORDERED: Insulin Human Lispro 100 Units/ML 3ML Syringe SC SCH (11:30)
[2024-06-16] MEDS ORDERED: Levothyroxine Sodium 0.15 MG Tab PO SCH (12:20)
[2024-06-16] MEDS ORDERED: HYDROcodone 5-APAP 325 TAB PO PRN (12:20)
[2024-06-16 14:37] VITALS: BP 149/76
[2024-06-16 17:32] VITALS: BP 141/60
--- NOTE | 2024-06-16 18:17 | NUR ---
PT PLEASANT SINCE ADMIT THIS AFTERNOON. NO C/O PIAN. LUNGS CLEAR, RESP EASY, UNLABORED. H/R REG, NO MURMUR NO EDEMA NOTED. PT AMBULATES SELF TO BATHROOM INDEPENDANTLY. A/O X3, PLEASANT, COOP. VSS. NO NEW CONCERNS NOTED. BED IN LOW POSITIOIN, CALL LITE IN REACH, CALLS APPROP
[2024-06-16 19:31] VITALS: BP 158/77
[2024-06-16] MEDS ORDERED: NS 250 ML IV PRN (19:50)
[2024-06-16] MEDS ORDERED: DULoxetine HCL 20 MG Cap DR PO SCH (21:00)
[2024-06-16] MEDS ORDERED: Pregabalin 25 MG Capsule PO SCH (21:00)
[2024-06-16] MEDS ORDERED: CefTRIAXone Sodium 1,000 MG in NS 100 ML IV SCH (21:00)
[2024-06-17] VITALS (7 sets, daily range): BP systolic 106–153; BP diastolic 62–90
--- NOTE | 2024-06-17 04:59 | NUR ---
SHIFT SUMMARY PT ALERT ORIENTED X 4 GETS UP AD BERNADINE IN HER ROOM AND AMBULATES TO THE BATHROOM. HER O2 SATS WENT DOWN TO 85% WHEN SHE WAS SLEEPING SO I PUT HER ON 2 L VIA NC. C/O NAUSEA MEDICATED WITH ZOFRAN WITH GOOD RESULTS. REMAINS ON TELEMETRY AT [facility] AT 77. C/O GENERALIZED PAIN MEDICATED WITH NORCO WITH GOOD RELIEF. REMAINS ON ROCEPHIN FOR UTI AND PNEUMONIA. NO C/O SOB. MRSA CULTURE WAS SENT TO THE LAB. REMAINS ON A CONTINUOUS PULSE OX. RESTING IN BED AT THIS TIME WITH CALL LIGHT IN REACH
[2024-06-17 06:44] LABS: BASOPHILS ABSOLUTE AUTO 0.05 K/mm3 (0.00-0.23); BASOPHILS PERCENT AUTO 1 % (0-2); EOSINOPHILS ABSOLUTE AUTO 0.14 K/mm3 (0.00-0.68); EOSINOPHILS PERCENT AUTO 3 % (0-6); Hematocrit 36.4 % (33.0-51.0); Hemoglobin 12.5 g/dL (11.5-16.0); IMMATURE GRAN ABSOLUTE AUTO 0.02 K/mm3 (0.00-0.10); IMMATURE GRAN PERCENT AUTO 0 % (0-1); LYMPHOCYTES ABSOLUTE AUTO 1.26 K/mm3 (0.84-5.20); LYMPHOCYTES PERCENT AUTO 24 % (21-46); MONOCYTES ABSOLUTE AUTO 0.61 K/mm3 (0.16-1.47); MONOCYTES PERCENT AUTO 11 % (4-13); Mean Corpuscular HGB Conc 34.3 g/dL (31.5-36.5); Mean Corpuscular Volume 87 fL (80-100); Mean Platelet Volume 10.9 fL (9.1-12.4); NEUTROPHILS ABSOLUTE AUTO 3.25 K/mm3 (1.96-9.15); NEUTROPHILS PERCENT AUTO 61 % (41-73); Platelet Count 160 K/mm3 (150-400); RDW Coefficient Variation 13.2 % (11.7-14.2); RDW Standard Deviation 41.5 fL (35.1-46.3); Red Blood Cell Count 4.17 M/mm3 (3.80-5.20); White Blood Cell Count 5.33 K/mm3 (4.00-11.30)
[2024-06-17 07:07] LABS: Bun/Creatinine Ratio 22.9 (12.0-20.0); Calcium, Blood 9.1 mg/dL (8.5-10.1); Creatinine, Blood 0.61 mg/dL (0.40-1.00); Potassium, Blood 4.3 mmol/L (3.5-5.5)
[2024-06-17] MEDS ORDERED: CloNIDine 0.1 MG Tab PO SCH (21:00)
[2024-06-18 05:20] VITALS: BP 134/76
[2024-06-18 05:57] LABS: BASOPHILS ABSOLUTE AUTO 0.04 K/mm3 (0.00-0.23); BASOPHILS PERCENT AUTO 1 % (0-2); EOSINOPHILS ABSOLUTE AUTO 0.28 K/mm3 (0.00-0.68); EOSINOPHILS PERCENT AUTO 7 % (0-6); Hematocrit 34.9 % (33.0-51.0); Hemoglobin 11.9 g/dL (11.5-16.0); IMMATURE GRAN ABSOLUTE AUTO 0.01 K/mm3 (0.00-0.10); IMMATURE GRAN PERCENT AUTO 0 % (0-1); LYMPHOCYTES ABSOLUTE AUTO 1.54 K/mm3 (0.84-5.20); LYMPHOCYTES PERCENT AUTO 40 % (21-46); MONOCYTES ABSOLUTE AUTO 0.62 K/mm3 (0.16-1.47); MONOCYTES PERCENT AUTO 16 % (4-13); Mean Corpuscular HGB 29.5 pg (26.0-34.0); Mean Corpuscular HGB Conc 34.1 g/dL (31.5-36.5); Mean Corpuscular Volume 86 fL (80-100); Mean Platelet Volume 10.9 fL (9.1-12.4); NEUTROPHILS ABSOLUTE AUTO 1.37 K/mm3 (1.96-9.15); NEUTROPHILS PERCENT AUTO 35 % (41-73); Platelet Count 169 K/mm3 (150-400); RDW Standard Deviation 40.6 fL (35.1-46.3); Red Blood Cell Count 4.04 M/mm3 (3.80-5.20); White Blood Cell Count 3.86 K/mm3 (4.00-11.30)
[2024-06-18 06:41] LABS: Bun/Creatinine Ratio 23.6 (12.0-20.0); Calcium, Blood 9.5 mg/dL (8.5-10.1); Creatinine, Blood 0.68 mg/dL (0.40-1.00); Potassium, Blood 4.3 mmol/L (3.5-5.5)
[2024-06-18 07:59] VITALS: BP 107/95
[2024-06-18] MEDS ORDERED: Aspirin 81 MG Chew PO SCH (09:00)
[2024-06-18] MEDS ORDERED: Insulin Human Lispro 100 Units/ML 3ML Syringe SC ONE (12:50)
[2024-06-18 16:25] VITALS: BP 107/73
[2024-06-18] MEDS ORDERED: CefTRIAXone Sodium 1,000 MG in NS 100 ML IV ONE (16:30)
[2024-06-18] MEDS ORDERED: Insulin Human Lispro 100 Units/ML 3ML Syringe SC SCH (17:00)
[2024-06-18] MEDS ORDERED: CEFD300 PO (19:16)
[2024-06-18] MEDS ORDERED: VISBIOME 112.51 EACH PO (19:17)
--- NOTE | 2024-06-18 19:33 | NUR ---
DISCHARGE SUMMARY PATIENT WITH NO COMPLAINTS TODAY. SHE REPORTS LIGHTHEADEDNESS IS RESOLVED. BG HIGH AT LUNCH. DR ZACARIAS NOTIFIED, INSULIN ADJUSTED AND PATIENT REPORTS NO ADVERSE EVENTS. PATIENT MEDICATION AND EDUCATION PACKET PRINTED AND REVIEWED WITH PATIENT AND . ALL QUESTIONS ANSWERED. SIGNATURE OBTAINED. IV REMOVED. PATIENT LEAVING UNIT AT 1933 VIA TRANSPORT CHAIR WITH [facility] AND LEAVING HOSPITAL VIA PRIVATE VEHICLE.
--- NOTE | 2024-06-18 20:23 | NUR ---
PT DISCHARGED @ 1930 WITH ALL BELONGINGS AND TRANSPORTED BY WHEELCHAIR TO [facility] OUTSIDE PT ENTRANCE.
== END 2024-06-18 19:40 | disposition home or self-care (01) | DRG 871 ==
LOC: ER 22:53 → ERHOLD 06-16 01:12 → MEDS 06-16 14:28
PROVIDERS: Family Medicine; Student in an Organized Health Care Education/Training Program; ADMIT Student in an Organized Health Care Education/Training Program
DX: A41.51 Sepsis due to Escherichia coli [E. coli] (principal); G92.8 Other toxic encephalopathy; J96.01 Acute respiratory failure with hypoxia; N39.0 Urinary tract infection, site not specified; E87.20 Acidosis, unspecified; E03.9 Hypothyroidism, unspecified; J44.9 Chronic obstructive pulmonary disease, unspecified; R65.20 Severe sepsis without septic shock; E83.42 Hypomagnesemia; E78.00 Pure hypercholesterolemia, unspecified; F32.A Depression, unspecified; E11.40 Type 2 diabetes mellitus with diabetic neuropathy, unspecified; Z86.14 Personal history of Methicillin resistant Staphylococcus aureus infection; Z90.710 Acquired absence of both cervix and uterus; Z88.5 Allergy status to narcotic agent; Z88.8 Allergy status to other drugs, medicaments and biological substances; Z79.82 Long term (current) use of aspirin; Z79.899 Other long term (current) drug therapy; Z79.84 Long term (current) use of oral hypoglycemic drugs; Z79.890 Hormone replacement therapy
CPT/HCPCS: 36415; 71045; 80048; 80053; 81001; 82947; 83605; 83690; 83735; 85025; 87077; 87086; 87186; 87428-QW; 93005; 93010; 94762; 96365; 96366; 96372; 96375; 96376; 99285-25; A9270; G0378; J0696; J1650; J2405; J3475; J7050; J7120

== ENCOUNTER → 2025-02-18 | Outpatient (CLI) | payer OTHER ==
[~2025-02-18] MED LIST changes: +CATAPRES0.1 MG PO; +CEFD300 PO; +Crestor40 MG PO; +INSULANPEN SC; +VISBIOME 112.51 EACH PO
== END ==
LOC: LAB 16:21 → LAB SHORT 16:21
DX: N39.0 Urinary tract infection, site not specified (principal)
CPT/HCPCS: 87086; 87186